=== PATIENT | male | born 1965 | race Caucasian/White ===

== ENCOUNTER 2019-06-06 10:43 | Emergency (ER) | payer BC ==
[2019-06-06] MEDS ORDERED: Bacitracin Oint 1 GM U/D Packet TOP ONE (10:58)
--- NOTE | 2019-06-06 11:03 | EDM.PDOC ---
ED HPI GENERAL MEDICAL PROBLEM - General Chief Complaint: Head Injury Stated Complaint: HURT RT EYE Time Seen by Provider: 06/06/19 10:51 Source of Information: Reports: Patient History Limitations: Reports: No Limitations - History of Present Illness INITIAL COMMENTS - FREE TEXT/NARRATIVE: HISTORY AND PHYSICAL: History of present illness: Patient is a 53-year-old male who presents to the emergency room with complaints of right-sided facial pain. He states that he is slipping on the ice when the right side of his face hit a pole while he was falling. He denies any loss of consciousness. He does have an abrasion over his right eyelid which extends into some soft tissue swelling to the right cheekbone. He states he is concerned he has a facial bone fracture. Denies any other extremity involvement. Offers no systemic complaints. Tetanus has been updated within the last 2 years. Review of systems: As per history of present illness and below otherwise all systems reviewed and negative. Past medical history: As per history of present illness and as reviewed below otherwise noncontributory. Surgical history: As per history of present illness and as reviewed below otherwise noncontributory. Social history: See social history for further information Family history: As per history of present illness and as reviewed below otherwise noncontributory. Physical exam: General: Well-developed and well-nourished 53-year-old male. Alert and oriented. Nontoxic appearing and in no acute distress. HEENT: SEE SKIN, tenderness with palpation of the right cheek bone. Nontender scalp, normocephalic, pupils equal and reactive bilaterally, negative for conjunctival pallor or scleral icterus, no ocular impingement, cardinal galvez of gaze intact, no pain with ocular movement, mucous membranes moist, teeth intact. TMs normal bilaterally, throat clear, neck supple, nontender, trachea midline. No drooling or trismus noted. No meningeal signs. No hot potato voice noted. Lungs: Clear to auscultation, breath sounds equal bilaterally, chest nontender. Heart: S1S2, regular rate and rhythm without overt murmur Abdomen: Soft, nondistended, nontender. Negative for masses or hepatosplenomegaly. Negative for costovertebral tenderness. Pelvis: Stable nontender. C-spine/Back: No pinpoint vertebral tenderness upon palpation. No crepitus, step -offs or obvious deformities. Patient is ambulatory into the emergency room without difficulty or deficit. Able to rock back on heels and walk on toes. Denies any urinary or fecal incontinence. Denies any numbness, tingling or saddle paresthesia. Skin: Superficial laceration to right upper eyelid. Soft tissue swelling to right cheek bone. Otherwise skin is intact, warm, dry. No lesions or rashes noted. Extremities: Moves all extremities per self without difficulty or deficits, full ROM, no pain with palpation/assessment, negative for cords or calf pain. Neurovascular unremarkable. Neuro: Awake, alert, oriented. Cranial nerves II through XII unremarkable. Cerebellum unremarkable. Motor and sensory unremarkable throughout. Exam nonfocal. Notes: No acute intracranial hemorrhage or mass. Right sided mild periorbital soft tissue swelling. Supportive care measures were reviewed and discussed. Voices understanding and is agreeable to plan of care. Denies any further questions or concerns at this time. Diagnostics: Head/maxillofacial CT Therapeutics: Wound Care, Bacitracin Prescription: Ultram Impression: Head injury Abrasion Plan: 1. Please review and follow the head injury instructions that we discussed in her printed in your discharge packet. 2. Limit any physical activities and follow cognitive rest (decrease screen time , reading, tv, etc..) over the next 24 hours pending resolution of symptoms. 3. Tylenol and/or ibuprofen as needed for pain management. 4. Keep the abrasion clean and dry; may apply Bacitracin ointment twice daily over the next 24-48 hours. 5. Follow-up with your primary care provider as we discussed. Return to the ED as needed and as discussed. Definitive disposition and diagnosis as appropriate pending reevaluation and review of above. right eye Pain Score (Numeric/FACES): 1 - Related Data Allergies Allergy/AdvReac Type Severity Reaction Status Date / Time No Known Allergies Allergy Verified 06/06/19 10:51 Home Meds: Home Meds Lisinopril/Hydrochlorothiazide [Lisinopril-Hctz 20-25 mg Tab] 06/06/19 [History ] Past Medical History Cardiovascular History: Reports: Hypertension - Infectious Disease History Infectious Disease History: Reports: Chicken Pox, Measles, Mumps - Past Surgical History GI Surgical History: Reports: Cholecystectomy Social & Family History - Family History Family Medical History: Noncontributory - Tobacco Use Smoking Status *Q: Never Smoker - Recreational Drug Use Recreational Drug Use: No ED ROS GENERAL - Review of Systems Review Of Systems: Comprehensive ROS is negative, except as noted in HPI. ED EXAM, HEAD INJURY - Physical Exam Exam: See Below (See dictation) Course - Vital Signs Last Recorded V/S: Last Vital Signs Temp 98 F 06/06/19 10:52 Pulse 77 06/06/19 10:52 Resp 16 06/06/19 10:52 BP 149/95 H 06/06/19 10:52 Pulse Ox 77 L 06/06/19 10:52 - Orders/Labs/Meds Orders: Active Orders 24 hr Category Date Time Status Max Facial Sinus wo Cont [CT] Stat Exams 06/06/19 10:58 Taken Meds: Medications Discontinued Medications Generic Name Dose Route Start Last Admin Trade Name Nacho PRN Reason Stop Dose Admin Bacitracin 1 dose 06/06/19 10:58 06/06/19 11:20 Bacitracin Oint 1 Gm TOP 06/06/19 10:59 1 dose ONETIME ONE Administration Departure - Departure Time of Disposition: 12:05 Disposition: Home, Self-Care 01 Clinical Impression: Abrasion Head injury Qualifiers: Encounter type: initial encounter Qualified Code(s): S09.90XA - Unspecified injury of head, initial encounter - Discharge Information Instructions: Head Injury, Adult, [id number] Referrals: Beau Landry MD [Primary Care Provider] - Forms: ED Department Discharge Additional Instructions: The following information is given to patients seen in the emergency department who are being discharged to home. This information is to outline your options for follow-up care. We provide all patients seen in our emergency department with a follow-up referral. The need for follow-up, as well as the timing and circumstances, are variable depending upon the specifics of your emergency department visit. If you don't have a primary care physician on staff, we will provide you with a referral. We always advise you to contact your personal physician following an emergency department visit to inform them of the circumstance of the visit and for follow-up with them and/or the need for any referrals to a consulting specialist. The emergency department will also refer you to a specialist when appropriate. This referral assures that you have the opportunity for follow-up care with a specialist. All of these measure are taken in an effort to provide you with optimal care, which includes your follow-up. Under all circumstances we always encourage you to contact your private physician who remains a resource for coordinating your care. When calling for follow-up care, please make the office aware that this follow-up is from your recent emergency room visit. If for any reason you are refused follow-up, please contact the [facility] Emergency Department at and asked to speak to the emergency department charge nurse. [facility] [address] [place] [id number] [facility] [address] [place] [id number] 1. Please review and follow the head injury instructions that we discussed in her printed in your discharge packet. 2. Limit any physical activities and follow cognitive rest (decrease screen time , reading, tv, etc..) over the next 24 hours pending resolution of symptoms. 3. Tylenol and/or ibuprofen as needed for pain management. 4. Keep the abrasion clean and dry; may apply Bacitracin ointment twice daily over the next 24-48 hours. 5. Follow-up with your primary care provider as we discussed. Return to the ED as needed and as discussed. - My Orders Last 24 Hours: My Active Orders 06/06/19 10:58 Max Facial Sinus wo Cont [CT] Stat - Assessment/Plan Last 24 Hours: My Active Orders 06/06/19 10:58 Max Facial Sinus wo Cont [CT] Stat
--- NOTE | 2019-06-06 11:46 | CT ---
Fell hit right eye. TECHNIQUE: Noncontrast head CT scan. FINDINGS: Axial noncontrast images through the brain parenchyma demonstrates no acute intracranial hemorrhage or mass. No midline shift. No abnormal extra-axial air fluid collections. Mild right periorbital soft tissue swelling. Paranasal sinuses mastoid air cells skull scalp otherwise appears unremarkable. IMPRESSION: 1. No acute intracranial hemorrhage or mass. Mild right periorbital soft tissue swelling. Please note that all CT scans at this facility use dose modulation, iterative reconstruction, and/or weight-based dosing when appropriate to reduce radiation dose to as low as reasonably achievable. Dictated by Edita Saenz MD @ Jun 06 2019 11:42AM Signed by Dr. Edita Saenz @ Jun 06 2019 11:44AM
--- NOTE | 2019-06-06 11:59 | CT ---
Fell hit right eye. Technique: Facial bone CT scan. Findings: Nasal technique septum deviated towards the right with small bony spur. Ostiomeatal complexes appear patent bilaterally. No facial bone fractures seen. Orbit and globe appear intact. Mild right periorbital soft tissue swelling. IMPRESSION: 1. No facial bone fracture. Mild right periorbital soft tissue swelling. Please note that all CT scans at this facility use dose modulation, iterative reconstruction, and/or weight-based dosing when appropriate to reduce radiation dose to as low as reasonably achievable. Dictated by Edita Saenz MD @ Jun 06 2019 11:44AM Signed by Dr. Edita Saenz @ Jun 06 2019 11:58AM
== END 2019-06-06 12:22 | disposition home or self-care (01) ==
LOC: MW.ED 10:43
DX: S01.111A Laceration without foreign body of right eyelid and periocular area, initial encounter (principal); I10 Essential (primary) hypertension; W00.0XXA Fall on same level due to ice and snow, initial encounter; W22.8XXA Striking against or struck by other objects, initial encounter
CPT/HCPCS: 70450; 70450-26; 70486; 70486-26; 99283-25; 99284